=== PATIENT | male | born 1955 | race Caucasian/White ===

== ENCOUNTER 2022-08-12 03:32 | Outpatient (CLI) | payer BC, SELFPAY ==
[2022-08-12 11:54] LABS: Anion Gap 7.2 mmol/L (3-11); BUN 22 mg/dL (7-18); CO2 27.8 mmol/L (21.0-32.0); CREATININE 1.3 mg/dL (0.70-1.30); Calcium 9.3 mg/dL (8.5-10.1); Calculated LDL 167 mg/dL (<100); Chloride 104 mmol/L (98-107); Cholesterol 236 mg/dL (<200); Estimated GFR 60.21 (mL/min/1.73m2); Glucose 106 mg/dL (74-106); HDL Cholesterol 48 mg/dL (40-60); Potassium 4.9 mmol/L (3.5-5.1); Sodium 139 mmol/L (136-145); Triglyceride 105 mg/dL (<150)
[2022-08-12 12:04] LABS: Uric Acid 9.5 mg/dL (3.5-7.2)
== END 2022-08-12 03:33 | disposition home or self-care (01) ==
LOC: LOS 03:46
PROVIDERS: PCP General Practice; Visit Provider Nurse Practitioner Family
DX: R03.0 Elevated blood-pressure reading, without diagnosis of hypertension (principal); Z00.00 Encounter for general adult medical examination without abnormal findings; Z86.39 Personal history of other endocrine, nutritional and metabolic disease; Z80.42 Family history of malignant neoplasm of prostate
CPT/HCPCS: 36415; 80048; 80061; 84153; 84550

== ENCOUNTER 2022-10-08 17:53 | Outpatient (REF) | payer BC, SELFPAY ==
[2022-10-08 20:54] LABS: ALT 66 U/L (16-63); AST 36 U/L (15-37); Creatine Kinase 168 U/L (39-308); Uric Acid 5.8 mg/dL (3.5-7.2)
[2022-10-08 21:22] LABS: HDL Cholesterol 52 mg/dL (40-60); LDL CHOLESTEROL 84 mg/dL (<100)
== END 2022-10-08 17:54 | disposition home or self-care (01) ==
LOC: NCHCN 17:53
PROVIDERS: PCP General Practice; Visit Provider Nurse Practitioner Family
DX: E78.70 Disorder of bile acid and cholesterol metabolism, unspecified (principal); R03.0 Elevated blood-pressure reading, without diagnosis of hypertension; Z86.39 Personal history of other endocrine, nutritional and metabolic disease
CPT/HCPCS: 82550; 83721; 83718; 84450; 84460; 84550

== ENCOUNTER 2023-03-06 11:46 | Outpatient (CLI) | payer BC, SELFPAY ==
--- NOTE | 2023-03-06 11:30 | DI.RAD_ITS ---
Exam(s) XR SHOULDER RT COMPLETE 2+V EXAM: XR SHOULDER RT COMPLETE 2+V CLINICAL HISTORY: right shoulder pain. TECHNIQUE: 2D digital imaging was performed. Five views. COMPARISON: CR RIGHT SHOULDER COMPLETE from 03/23/2013 FINDINGS: BONES: No acute fracture is present. No bony destructive lesion is seen. JOINTS: No dislocation present. There are severe degenerative changes of the glenohumeral joint with prominent inferior osteophyte. There is narrowing of the inferior glenohumeral joint space. Spurri ng is seen from the inferior glenoid. The AC joint is unremarkable. SOFT TISSUE: Normal. IMPRESSION: Severe degenerative changes of the glenohumeral joint. DATA REPOSITORY: RADIATION DOSE DELIVERED:
== END 2023-03-06 11:47 | disposition home or self-care (01) ==
LOC: DIORS 11:47
PROVIDERS: PCP Nurse Practitioner Family; Referring Provider Nurse Practitioner Family; Visit Provider Physician Assistant
DX: M19.011 Primary osteoarthritis, right shoulder
CPT/HCPCS: 73030

== ENCOUNTER 2023-11-17 05:57 | Day surgery (SDC) | payer BC, SELFPAY ==
[2023-11-17] VITALS (10 sets, daily range): BP systolic 120–176; BP diastolic 72–102; PULSE 65–94; RESP 14–21; TEMP 36.5–37.1; O2SAT 93–100; BMI 32.4
--- NOTE | 2023-11-17 06:33 | ANES.PREOP_ITS ---
General Info Date of Service Date Performed: 11/17/23 Height: 5 ft 6 in Weight: 91.2 kg Body Mass Index (BMI): 32.4 Surgical Procedure: Operation Date: 11/17/23 07:40 Proposed Procedure Side Surgeon p Shoulder Reverse Total Arthroplasty, Biceps Tenodesis Right Serafin Aguilar MD Meds Allergies and Home Medications Allergies Allergy/AdvReac Type Severity Reaction Status Date / Time No Known Allergies Allergy Verified 11/17/23 06:09 Home Medication Medication Instructions Recorded atorvastatin 20 mg tablet 20 mg PO DAILY Cholesterol 03/06/23 famciclovir 500 mg tablet 1,000 mg PO ONCE PRN Treatment of 03/06/23 coldsores allopurinol 100 mg tablet 200 mg PO DAILY Gout preventative 09/22/23 aspirin 81 mg tablet,delayed 81 mg PO DAILY prevent blood clot 11/17/23 release 7 days #7 tabs naproxen 250 mg tablet 250 - 500 mg (1 - 2 x 250 mg) PO 11/17/23 BID PRN #40 tabs oxycodone 5 mg tablet 5 - 10 mg (1 - 2 x 5 mg) PO Q4H 11/17/23 PRN moderate to severe pain #9 tabs Current Visit Medications: Current Medications Generic Name Dose Route Start Last Admin Trade Name Freq PRN Reason Stop Dose Admin Ringer's Solution 1,000 mls @ 30 mls/hr 11/17/23 06:00 IV 12/16/23 23:59 INFUSION [facility] Cefazolin Sodium/Dextrose 2 gm in 50 mls @ 100 mls/hr 11/17/23 06:00 Ancef Duplex IVPB 11/17/23 16:00 PREOP KITTY Tranexamic Acid 1,000 mg/ 60 mls @ 360 mls/hr 11/17/23 06:00 Sodium Chloride IVPB 11/17/23 16:00 PREOP KITTY IV Miscellaneous Supplies 1 each 11/17/23 06:00 Iv Access IV 12/16/23 23:59 DIRECTED KITTY Sodium Chloride 0 ml 11/17/23 06:00 Normal Saline Flush 10 Ml Syr IV 12/16/23 23:59 PRN PRN Sodium Chloride 0 ml 11/17/23 06:00 Normal Saline 10 Ml Vial IJ 12/16/23 23:59 DIRECTED PRN Sterile Water 0 ml 11/17/23 06:00 Water,Injection,Sterile 10 Ml Vial IJ 12/16/23 23:59 DIRECTED PRN PFS Active Problems Active Problems: Problem Status Onset Code Arthritis of right glenohumeral joint M19.011 Medical History Medical History Hx of cold sores High cholesterol Hx of gout Surgical History Surgical History Hx of colonoscopy Hx of appendectomy Tobacco Smoking/Tobacco Use Status: Former Tobacco Use Alcohol Alcohol Intake: current Alcohol intake frequency: a few times a week Alcohol type: hard liquor Substance Use Substance use: Never Substance use type: does not use Details: alcohol: t-7 Vital Signs and Lab Results Vital Signs Most Recent Vital Signs in EMR: Most Recent Vital Signs Temp Pulse Resp BP Pulse Ox 36.6 C 70 14 176/98 H 97 11/17/23 06:16 11/17/23 06:16 11/17/23 06:16 11/17/23 06:16 11/17/23 06:16 Lab Results Blood Type / Crossmatch: No Data to Display Complete Blood Count: No Data to Display Complete Metabolic Panel: No Data to Display Liver Function Panel: No Data to Display Coagulation Panel: No Data to Display Cardiac Panel: No Data to Display Arterial Blood Gas: No Data to Display Venous Blood Gas: No Data to Display Pancreas Panel: No Data to Display Thyroid Panel: No Data to Display Infectious Disease: No Data to Display Blood Cultures: No Data to Display Toxicology Panel: No Data to Display Anesthesia Assessment and Plan Anesthesia History Personal History: No History of Anesthesia Complications Family History: No Family History of Anesthesia Complications Exercise Tolerance Exercise Tolerance: Metabolic Equivalents>4 Pertinent Negatives Pertinent Negatives: No Symptoms of GERD, No Major Cardiovascular Symptoms or Complaints, No Major Pulmonary Symptoms or Complaints and No History of CVA/TIA Cardiac & Pulmonary Exam Cardiac Exam: Normal S1/S2 Heart Sounds Pulmonary Exam: Clear Bilateral Breath Sounds Implantable Cardiac Device Does patient have a Pacemaker or an ICD?: No Airway Exam Known Difficult Airway: No Mallampati Class: 2 Mouth Opening: Normal (> 3cm) Thyromental Distance: Greater than 3 cm Neck Range of Motion: Full ROM Neck Circumference: Normal Teeth Condition: Normal Dentition ASA Classification ASA Score: ASA 2 Emergency Case?: No NPO Status NPO Status: NPO Clears >2 hours, Solids >8 hours Anesthesia Plan Resuscitation Status: Full Code Anesthesia Technique: General Anesthesia Airway Planned: Endotracheal Tube Pain Management: Surgeon and patient request nerve block Monitors Used: Standard Monitors and SedLine
[2023-11-17] MEDS: Lactated Ringers 1,000 ML 30 ML IV (06:45)
--- NOTE | 2023-11-17 07:06 | W.PM.DSUDISC ---
Date of service: 11/17/23 Time of Service: 12:00 Discharge Plan Disposition Patient Disposition: Home Condition: Stable Discharge Details Attending Provider: Serafin Aguilar Primary Care Provider: Addis Ly Home Meds and New Rx's Prescriptions: New aspirin 81 mg tablet,delayed release (DR/EC) 81 mg PO DAILY 7 Days Qty: 7 0RF naproxen 250 mg tablet 250 - 500 mg PO BID PRNQty: 40 0RF Rx Instructions: take with a meal oxycodone 5 mg tablet 5 - 10 mg PO Q4H MDD 30 mg PRN (Reason: moderate to severe pain) Qty: 9 0RF Continued atorvastatin 20 mg tablet 20 mg PO DAILY famciclovir 500 mg tablet 1,000 mg PO ONCE PRN (Reason: Treatment of coldsores) Patient Comments: Taken only as needed. allopurinol 100 mg tablet 200 mg PO DAILY Discontinued naproxen sodium [Aleve] 220 mg capsule 220 mg PO DAILY PRN Discharge Instructions Additional Instructions: Surgery: Right reverse total shoulder arthroplasty with biceps tenodesis Activity: Do not lift anything heavier than a coffee. You should keep your arm at your side in a neutral position most of the time except for gentle range of motion exercises, physical therapy, and light essential activities. You should use the sling whenever you are out of the house. You may have to adjust the abduction pillow or remove it for comfort. At home it is best to remove the sling and rest the arm on a pillow at your side or support the operative side with your other hand. A physical therapy prescription will be sent electronically to start in about 3 weeks. Standard Reverse TSA Protocol: Immediate AROM OK. Prescriptions: Aspirin 81 mg take 1 daily to prevent a blood clot for 2 weeks Naproxen 250 mg take 1-2 every 12 hours with a meal as needed for moderate pain Oxycodone 5 mg take 1-2 every 4-6 hours as needed for severe pain You may use [id number] Tylenol (acetaminophen) as needed for mild pain. These pain medications may be taken all at once or in different combinations as needed. Also, recommend Colace (docusate) as a stool softener as surgery and pain medicine cause constipation. You may try [id number] diphenhydramine (Benadryl) 25-50 mg nightly as a sleep aid Dressings: Leave dressing in place until follow-up. Keep clean and dry at all times. No showers please. Follow-up: 10-[address] Aguilar You may take off the leg compression stockings this evening at home. You may also leave them on a few days longer if you have a history of leg swelling or edema. Please call the office during business hours with any questions or concerns. Let us know right away if you develop any redness, drainage, fevers, chest pain, or trouble breathing. Do not drink alcohol or drive for at least 24 hours after anesthesia. Discharge Orders Discharge Orders: Discharge Order (Routine); Ordered 11/17/23 Ordered By: Serafin Aguilar DS: Diagnosis Discharge Diagnosis (1) Arthritis of right glenohumeral joint: Status: Chronic
--- NOTE | 2023-11-17 07:08 | ROE_ITS ---
Date of service: 11/17/23 Time of Service: 07:38 Operative Note Operative Note DATE OF PROCEDURE: 11/17/23 PRE-OP DIAGNOSIS: Right: 1. End-stage glenohumeral arthritis 2. Long head of the biceps tendinopathy POST-OP DIAGNOSIS: same PROCEDURE: Right: 1. Reverse total shoulder arthroplasty, CPT # [address] 2. Open biceps tenodesis, CPT # 07433 The surveyor instrument assistant was medically required as this procedure involves retraction, protection of neurovascular structures, and manipulation of multiple instruments and implants at the same time, which cannot be done without a skilled surveyor instrument assistant. SURGEON: Serafin Aguilar HELP DESK INTERN: Maddy Winchester ANESTHESIA TYPE: Local By Surgeon, General LMA/ETT and Primary Nerve Block Refer to Anesthesia Record ESTIMATED BLOOD LOSS: 50 COMPLICATIONS: None Patient was transported to: PACU Patient's condition: stable Implants: [employer] modular glenoid system baseplate 24 mm with 20 degree full augment [employer] modular glenoid system central post 25 mm [employer] modular glenoid system peripheral locking screws 28 mm posterior inferior, 36 mm anterior superior, 32 mm posterior superior, 28 mm anterior inferior [employer] modular glenoid system glenosphere 42 +4 mm lateralized [employer] humeral stem 135 degrees size 8 [employer] suture cup size 42 posterior offset [employer] humeral insert size 42 +63 mm Indications: Please see complete medical record for details. Findings: Significant glenohumeral bony deformity with large impinging osteophytes, loose bodies, complete cartilage loss, anterior capsular and subscapularis contracture, thinning supraspinatus, significant long head biceps tenosynovitis with about apparent chronic partial tearing and retraction into the bicipital groove with loose bodies as well. Procedure Description: In the operating room, general anesthesia was induced. The patient was positioned beachchair on the operating room table. All bony prominences were well-padded. Preoperative antibiotics were administered. The shoulder was prepped and draped in the usual sterile fashion for shoulder arthroplasty. The correct patient, procedure, and side of the procedure were all verified prior to incision. The deltopectoral approach was preinjected with 0.25% bupivacaine containing epinephrine 30cc and taken to the anterior shoulder. Care was taken to bluntly dissect the interval between the deltoid and pectoralis major muscles and to identify the cephalic vein within its fat stripe. The the vein was mobilized laterally. Subdeltoid space and conjoined tendon were freed of adhesions. The long head of the biceps tendon was identified just lateral to the lesser tuberosity. The uppermost margin of the pectoralis major tendon was released from the proximal humerus. There was an obvious stump of the rolled up retracted biceps tendon in the bicipital groove. It was tagged with suture tape. The bicipital groove was opened more proximally and followed into the joint. The remainder of the proximal long head biceps tendon was identified intact and diminutive possibly the other 50% of the tendon not torn and retracted. It was released and also tagged at about the same level bicipital groove lesser tuberosity with suture tape for later repair. The upper margin of the pectoralis major tendon was released. A subscapularis peel was started releasing the entirety of the tendon as best possible, but given the significant impinging anterior osteophytes in the anterior capsular contracture, it became clear it was unlikely to be amenable to later repair. Still it was tagged with suture tape in a Alo-Yasir fashion for help with release and retraction. Significant care was taken working from anterior to anterior inferior along the osteophytes while gradually bringing the arm into external rotation. Care was taken to avoid the axillary nerve especially inferiorly and medially. Releases were performed on bone of the humerus sequentially releasing capsule and then removing the osteophytes to view the anatomic neck. The anterior leading edge of the supraspinatus was debrided of partial-thickness tearing. Appropriate coagulation was achieved especially interiorly. The anatomic neck was cut matching patient retroversion about 30 degrees in the planned 135 degree neck shaft angle using an oscillating saw with the humeral head bone brought back table in case there was a need for future bone grafting. The proximal humeral protection plate was used to provisionally confirm suture cup and glenosphere size. The proximal humerus was delivered and maintained in external rotation and adduction of the patient's side. Reamers were started appropriately posterior to the bicipital groove taking care to maintain in line approach with the humeral canal. Sequential reaming was done from size 5 up to size 8. Next, the broaches were sequentially used to open the proximal humerus starting with a size 5 and going up to size 8 and sunk to the appropriate depth while maintaining approximately 30 degrees retroversion. There was good metaphyseal fit and rotational control of the proximal humerus with this size. The posterior offset guide was used to ream for the suture cup. Attention was then turned to the glenoid and retractors were placed and a circumferential release performed using the long head of the biceps remnant to remove soft tissue about the glenoid rim. Care was taken inferiorly to work on bone only between 5 and 7:00 o'clock and bluntly elevate tissues inferiorly. The VIP guide was placed on the glenoid and used to confirm placement and trajectory of the central guidepin. The guidepin was inserted and advanced just through the far cortex ensuring adequate central fixation length. Depth gauge was used to confirm length. The 20 degree eccentric baseplate die drawing checker was used, maximum defect and 180 degrees from this point marked on the glenoid surface, and the eccentric reamer used over the guidewire taking significant care to maintain the appropriate angles and prepare the significantly retroverted and worn glenoid as best possible. Reamed surface was checked, the reamer done to establish just barely the right amount of depth. Reamed surface was checked and appropriate. There was excellent reaming as templated slightly more anteriorly than posteriorly with appropriate glenoid face preparation with correction mostly from posterior to anterior. The 25 mm central post drill was used. Guidewire removed and appropriate glenoid face and socket preparation confirmed. The baseplate was impacted and fully compressed onto the glenoid surface matching the augment to the defect. The locking guide was then used to drill and place appropriately lengthed inferior, superior, anterior, and posterior screws. The [id number] reamer was used to confirm adequate peripheral reaming. The glenosphere was applied with the airfield defence guard and then impacted to engage the Alfaro taper. It was then locked with appropriate countersinking of the setscrew. The glenosphere was inspected and found to have good fit, appropriate positioning, and no soft tissue or bony impingement. The humeral trial cup was connected. Trialing was commenced with +3 mm liner. The shoulder was reduced and taken through range of motion and demonstrated good stability and appropriate tension on the deltoid and conjoined tension. The trial components were removed from the proximal humerus. The wound was copiously irrigated with normal saline. Subscapularis repair was omitted given lack of excursion to the lateralized lesser tuberosity. It was tenotomized just medial to the tag sutures. A small amount of vancomycin powder was distributed in the proximal humerus. The humeral component and suture cup were impacted into place. They rested in the same place as the last trialed implants so the final liner was then connected, and range of motion, stability, and tension confirmed. The shoulder was copiously irrigated with Irrisept and normal saline. Vancomycin powder was distributed deeply about the shoulder and through subcutaneous tissues. The 2 ends of the intact and ruptured biceps tendon were brought to the bicipital groove at about the lesser tuberosity to establish correct tension. The upper margin of the pectoralis major tendon on the humerus bone and biceps tendon at this level were secured together using suture tape [id number], which was repaired distal to the partial split tearing. The remainder rested nicely proximally adjacent to the lesser tuberosity and was adhered to this bone with the needle passed through the lesser tuberosity bone and then tied over the tendon. The remainder of the proximal tendon was amputated. The cephalic vein and deltopectoral interval was approximated using 2-0 Monocryl. Subcutaneous tissue was irrigated then closed using 2-0 Monocryl in a buried interrupted fashion. Skin was closed using 3-0 Monocryl in a buried subcuticular fashion. Skin glue was applied to the incision. A silver impregnated bandage was placed over the incision. The extremity was placed into a shoulder immobilizer. The patient awoke from anesthesia without complication and was taken to the recovery room in stable condition.
[2023-11-17] MEDS: ceFAZolin 2 GM/50 ML BAG IVPB (07:59)
[2023-11-17] MEDS: Bupivacaine 0.25% Pres-Free 30 ML VIAL (08:30)
[2023-11-17] MEDS: EPINEPHrine 10 MG/10 ML ML (08:30)
--- NOTE | 2023-11-17 09:03 | W.ANESNERVE ---
Nerve Block Single Injection Procedure Date and Time Date Performed: 11/17/23 Procedure Start: 07:13 Location Where Procedure Performed Procedure Location: Day Surgery Unit Reason Performed: Postoperative Analgesia Requesting Provider: Serafin Aguilar Timeout Performed Timeout Performed: Yes Monitoring Used ECG, Blood Pressure and SpO2 Sterility Sterility: Hand Hygiene, Surgical Cap, Surgical Mask, Sterile Gloves and Chlorhexidine Sedation Given During Procedure Sedation Given (Indicate Dose Given): Versed IV Dose:: 2mg Patient Mental Status Patient Mental Status: Sedate with meaningful communication Nerve Block 1st Nerve Block: Laterality: Right Block Type: Superficial Cervical Plexus Ultrasound Image Saved?: Yes Needle / Catheter Used: 100mm SonoPlex II Local Anesthetic Bolus (Indicate Dose Given): Lidocaine used for local infiltration of skin, Injected in 3-5ml increments after negative blood aspiration, Bupivacaine 0.5% Dose:: 3.5mL and Exparel Dose:: 3.5mL Additives (Indicate Dose Given): None Ultrasound: Sterile probe cover and gel used Nerve Stimulator: Supplement to Ultrasound use and No twitch or parasthesia noted < 0.5 mA Paresthesia: None Procedure Tolerated: No Complications and Patient tolerated well Procedure Outcome: Successful Performed By: Antonio Echeverria 2nd Nerve Block: Laterality: Right Block Type: Interscalene Ultrasound Image Saved?: Yes Needle / Catheter Used: 100mm SonoPlex II Local Anesthetic Bolus (Indicate Dose Given): Lidocaine used for local infiltration of skin, Injected in 3-5ml increments after negative blood aspiration, Bupivacaine 0.5% Dose:: 6.5mL and Exparel Dose:: 6.5mL Additives (Indicate Dose Given): None Ultrasound: Sterile probe cover and gel used Nerve Stimulator: Supplement to Ultrasound use Paresthesia: None Procedure Tolerated: No Complications and Patient tolerated well Procedure Outcome: Successful Performed By: Antonio Echeverria
--- NOTE | 2023-11-17 11:00 | DI.RAD_ITS ---
Exam(s) XR SHOULDER RT COMPLETE 2+V EXAM: XR SHOULDER RT COMPLETE 2+V CLINICAL HISTORY: Shoulder arthritis. TECHNIQUE: 2D digital imaging was performed of the right shoulder. Two images were obtained. Grash ey and Y views were obtained. COMPARISON: CR XR SHOULDER RT COMPLETE 2+V from 03/06/[address] UPPER EXTREMITY RT WO from 08/07/2023 FINDINGS: The patient is now status post right total reverse shoulder replacement. Orthopedic hardware is in g ood position. The bones are intact and normally mineralized. Postsurgical changes are seen in the s oft tissues. There are old healed right rib fractures. The visualized lungs are clear. IMPRESSION: Status post right total reverse shoulder replacement. DATA REPOSITORY: RADIATION DOSE DELIVERED:
[2023-11-17] MEDS: ceFAZolin 1 GM/50 ML BAG IVPB (11:31)
--- NOTE | 2023-11-17 12:32 | W.ANESPOSTOP ---
Postoperative Evaluation Date, Time and Location Date Performed: 11/17/23 Time Performed: 12:32 Patient Location: PACU Vital Signs Most Recent Imported Vital Signs: Most Recent Vital Signs Temp Pulse Resp BP Pulse Ox 36.7 C 66 21 138/78 96 11/17/23 12:14 11/17/23 12:14 11/17/23 12:14 11/17/23 12:14 11/17/23 12:14 Pain Score Most Recent Pain Score: Most Recent Pain Score Pain Level 0 11/17/23 12:14 Assessment Mental Status: Awake (Alert & Oriented to Patient Baseline) Airway and Respiratory Function: Patent airway with normal (patient baseline) respiratory exam Cardiovascular Function: Hemodynamically Stable Hydration Status: Adequately Hydrated Nausea & Vomiting: No Nausea or Vomiting Pain: Pt. Denies Any Pain Peripheral Nerve Block: Regional nerve block not resolved at time of post operative discharge
== END 2023-11-17 14:37 | disposition home or self-care (01) ==
PROVIDERS: PCP Nurse Practitioner Family; Visit Provider Student in an Organized Health Care Education/Training Program
PROC: (CPT 23472; principal; 2023-11-17 07:30)
DX: M19.011 Primary osteoarthritis, right shoulder (principal); M75.21 Bicipital tendinitis, right shoulder
CPT/HCPCS: 23472; 76942; 73030; C9290; J0131; J0665; J0690; J1100; J1885; J2001; J2250; J2371; J2405; J2704; J3370

== ENCOUNTER 2023-12-01 11:36 | Outpatient (CLI) | payer BC, SELFPAY ==
--- NOTE | 2023-12-01 09:45 | DI.RAD_ITS ---
Exam(s) XR SHOULDER RT COMPLETE 2+V EXAM: XR SHOULDER RT COMPLETE 2+V INDICATION: F/U RIGHT RTSA. COMPARISON: CR XR SHOULDER RT COMPLETE 2+V from 11/17/2023 TECHNIQUE: 2D digital imaging was performed. Two views. FINDINGS: There has been no change in the alignment of the shoulder prosthesis. There are no abnormal bony lucencies. DATA REPOSITORY: RADIATION DOSE DELIVERED:
== END 2023-12-01 11:37 | disposition home or self-care (01) ==
LOC: DIORS 11:36
PROVIDERS: PCP Nurse Practitioner Family; Visit Provider Student in an Organized Health Care Education/Training Program
DX: M19.011 Primary osteoarthritis, right shoulder (principal)
CPT/HCPCS: 73030

== ENCOUNTER 2024-01-12 15:57 | Outpatient (CLI) | payer BC, SELFPAY ==
--- NOTE | 2024-01-12 08:00 | DI.RAD_ITS ---
Exam(s) XR SHOULDER RT COMPLETE 2+V EXAM: XR SHOULDER RT COMPLETE 2+V INDICATION: F/U RIGHT RTSA. COMPARISON: CR XR SHOULDER RT COMPLETE 2+V from 12/01/2023 TECHNIQUE: 2D digital imaging was performed. Three views. FINDINGS: Stable appearance of reverse shoulder prosthesis. No abnormal bony lucencies. DATA REPOSITORY: RADIATION DOSE DELIVERED:
== END 2024-01-12 15:58 | disposition home or self-care (01) ==
LOC: DIORS 15:57
PROVIDERS: PCP Nurse Practitioner Family; Visit Provider Student in an Organized Health Care Education/Training Program
DX: M19.011 Primary osteoarthritis, right shoulder (principal)
CPT/HCPCS: 73030

== ENCOUNTER 2024-11-18 15:59 | Outpatient (REF) | payer BC, SELFPAY ==
[2024-11-18 19:03] LABS: ALT 24 U/L (16-63); AST 31 U/L (15-37); Albumin 4.2 g/dL (3.4-5.0); Alkaline Phosphatase 86 U/L (46-116); Anion Gap 4.8 mmol/L (3-11); BUN 21 mg/dL (7-18); Bilirubin, Total 0.67 mg/dL (0.2-1.0); CO2 28.2 mmol/L (21.0-32.0); CREATININE 1.2 mg/dL (0.70-1.30); Calcium 8.9 mg/dL (8.5-10.1); Calculated LDL 71 mg/dL (<100); Chloride 103 mmol/L (98-107); Cholesterol 145 mg/dL (<200); Estimated GFR 65.06 (mL/min/1.73m2); Glucose 95 mg/dL (74-106); HDL Cholesterol 59 mg/dL (40-60); Potassium 4.1 mmol/L (3.5-5.1); Sodium 136 mmol/L (136-145); Total Protein 8.2 g/dL (6.4-8.2); Triglyceride 75 mg/dL (<150)
[2024-11-18 19:14] LABS: Uric Acid 3.8 mg/dL (3.5-7.2)
[2024-11-18 19:33] LABS: Hemoglobin A1C 6.1 % (<5.7)
[2024-11-21 10:25] LABS: PSA, Screening 1.9 ng/mL (<=6.5)
== END 2024-11-18 16:00 | disposition home or self-care (01) ==
LOC: NCHCN 15:59
PROVIDERS: Visit Provider Nurse Practitioner Family
DX: Z00.00 Encounter for general adult medical examination without abnormal findings (principal)
CPT/HCPCS: 80053; 80061; 84153; 83036; 84550

== ENCOUNTER 2024-11-22 15:31 | Outpatient (CLI) | payer BC, SELFPAY ==
--- NOTE | 2024-11-22 08:00 | DI.RAD_ITS ---
Exam(s) XR SHOULDER RT COMPLETE 2+V EXAM: XR SHOULDER RT COMPLETE 2+V CLINICAL HISTORY: F/U RIGHT RTSA. TECHNIQUE: 2D digital imaging was performed. Five images were obtained. Grashey, Y and axillary vie ws were obtained. COMPARISON: CR XR SHOULDER RT COMPLETE 2+V from 01/12/2024 FINDINGS: BONES: There are stable post operative changes of a right reverse total shoulder arthroplasty present . No fracture or dislocation. There are old healed right rib fractures. JOINTS: The orthopedic hardware is in good position. No evidence of hardware loosening. Mild degene rative changes are seen at the acromioclavicular joint. SOFT TISSUE: Normal. IMPRESSION: Stable right reverse total shoulder arthroplasty. DATA REPOSITORY: RADIATION DOSE DELIVERED:
== END 2024-11-22 15:32 | disposition home or self-care (01) ==
LOC: DIORS 15:31
PROVIDERS: PCP Nurse Practitioner Family; Visit Provider Student in an Organized Health Care Education/Training Program
DX: M19.011 Primary osteoarthritis, right shoulder (principal)
CPT/HCPCS: 73030

== ENCOUNTER 2025-09-26 10:45 | Day surgery (SDC) | payer OTHER, SELFPAY ==
[2025-09-26 10:59] VITALS: BP 169/94; PULSE 77; RESP 16; TEMP 36.2; O2SAT 98
[2025-09-26] MEDS: Cephalexin 500 MG CAP 1000 MG PO (11:05)
--- NOTE | 2025-09-26 12:10 | W.PM.DSUDISC ---
Date of service: 09/26/25 Discharge Plan Disposition Patient Disposition: Home Condition: Good Discharge Details Reason For Visit: L ECTR, LFM Trigger Release Attending Provider: Nolberto Grier Primary Care Provider: Laurel Bazan Home Meds and New Rx's Prescriptions: New acetaminophen 500 mg tablet 1,000 mg PO TID Qty: 90 0RF ibuprofen 600 mg tablet 600 mg PO TID PRN (Reason: pain) Qty: 90 0RF Continued atorvastatin 20 mg tablet 20 mg PO DAILY allopurinol 100 mg tablet 200 mg PO DAILY Discharge Instructions Stand Alone Forms: [place] C. Tunnel Release, [place] T. Finger Release, Portal Information Referrals: Nolberto Grier MD [ [facility] STAFF PHYSICIAN, Orthopaedic Surgical] Activity:: Activity as Tolerated Remove Dressings/Wound Care:: 48 hours Shower/Bathe:: 48 hours Diet:: As Tolerated Discharge Orders Discharge Orders: Discharge Order (Routine); Ordered 09/26/25 Ordered By: Star Segovia DS: Diagnosis Discharge Diagnosis (1) Trigger finger, left middle finger: Status: Acute (2) Carpal tunnel syndrome, left: Status: Acute
[2025-09-26] MEDS: Lidocaine 1% Pres-Free W/EPI 1/200,000 10 ML VIAL (13:15)
[2025-09-26] MEDS: Sodium Bicarbonate 50 MEQ/50 ML VIAL (13:16)
[2025-09-26 13:21] VITALS: BP 142/80; PULSE 69; RESP 16; TEMP 36.2; O2SAT 94
--- NOTE | 2025-09-26 15:01 | W.PM.OP ---
Operative Note Operative Note PRE-OP DIAGNOSIS: Left Carpal Tunnel Syndrome Left middle finger trigger finger POST-OP DIAGNOSIS: same PROCEDURE: Left Endoscopic Carpal Tunnel Release Left middle finger trigger release SURGEON: Nolberto Grier ANESTHESIA TYPE: Local By Surgeon Refer to Anesthesia Record ESTIMATED BLOOD LOSS: 0 PATHOLOGY: none sent TOURNIQUET TIME: 6 COMPLICATIONS: None Patient was transported to: same day Patient's condition: stable Indications: I have seen Kitr in clinic for symptoms of carpal tunnel syndrome. The numbness, tingling, and pain limited function. Clinical exam findings confirmed the diagnosis of carpal tunnel syndrome. He also had clicking and triggering of the left middle finger which has been ongoing for quite some time. Nonoperative measures such as bracing, time, activity modifications had been tried but disability and pain persisted. I discussed carpal tunnel release with the patient. I also offered concomitant left finger trigger release. I reviewed the risks of the procedures to include, but not limited to, bleeding, infection, pain, stiffness, incomplete release, damage to nerves or vessels, persistent numbness, recurrence. Despite these risks, the patient elected to proceed. Findings: The left middle finger A1 medina was release without difficulty. There was tightened carpal tunnel. This was dilated and released successfully with the endoscopic with increased space within the tunnel. The antebrachial fascia was released proximally freeing the median nerve at the wrist. Procedure Description: Kirt was greeted in the preoperative holding area where the correct side was identified and marked. The consent was reviewed with the patient and signed. The history and physical was updated. All questions were answered. Kirt was taken back to the operating room. The patient was placed into the supine position on the operating room table with the left arm on an arm board. A nonsterile tourniquet was placed high onto the arm. All bony prominences were well padded. Prophylactic antibiotics in the form of Cephalexin were administered in DSU. The left arm was then prepped with Chloraprep and draped in a standard fashion with stockinette and extremity drape. A timeout to confirm correct identity, side and site, procedure, allergies, anesthesia, and medical concerns was performed. The surgical site was marked in the volar wrist creases in line with the radial border of the fourth ray as well as longitudinally overlying the A1 medina of the left middle finger.. This area was anesthetized with approximately 10cc of 1% Lidocaine with Epinephrine, buffered with Sodium Bicarbonate and extended into the carpal tunnel. The area around the A1 medina of the left middle finger was also anesthetized. Kirt tolerated this well and once the anesthetic had setup, the procedure began. A longitudinal incision was made through skin only, approximately 1cm, overlying the A1 medina. The deep tissues were dissected bluntly. Once the A1 medina and flexor tendons were identified the soft tissue including neurovascular structures were retracted medially and laterally. There were no crossing structures over the A1 medina. The proximal edge of the medina was identified and the medina was incised with tenotomy scissors. There was a release of the tendons once this was fully released. The tendons were then removed from the wound and inspected. Excess synovium was resected. The tendons were then returned and the patient was asked to move the finger into deep flexion and back to extension. There was no recreation of the pre-operative symptoms. The hand was then once more inspected for any A0 medina or area of possible constriction. The wound was then irrigated and the skin was closed with a 4-0 Nylon. Then, the limb was then exsanguinated with an Esmarch. The skin of the volar wrist was incised with a 15 blade, approximately 1cm. The skin only was cut and the deeper tissue was dissected bluntly with a tenotomy scissor, avoiding passing nerve and venous structures. The fascia was penetrated and opened bluntly. A two-prong skin hook was placed under this proximal fascial edge. A series of hamate finders were used to identify and dilate the carpal tunnel. Synovial elevator was used to free synovial attachments to the underside of the transverse carpal ligament. My thumb was kept in the palm to jhon the distal extent of the carpal tunnel and correctly position the hand. The Microaire endoscope was inserted without difficulty and without resistance. Excellent visualization showed horizontally running fibers of the transverse carpal ligament (TCL). The distal extent of the TCL was visualized and the end of the scope palpated with the thumb. The blade was elevated and withdrawn from distal to proximal. The TCL was split into two flaps. The endoscope was reinserted to confirm complete release and any remnant ligament was incised. The scope was withdrawn and the proximal aspect of the carpal tunnel was grossly inspected and appeared release with the median nerve visible. The antebrachial fascia at the level of the wrist was then freed from the overlying skin and then the underlying median nerve with blunt dissection. This was transected longitudinally for about 3cm proximal to the wrist incision. The wound was then irrigated with easy flow of irrigant distally and proximally. The incision was closed with a single 4-0 Nylon suture. The wounds were dressed with Xeroform, Gauze, Kerlix and Rodolfo. The tourniquet was deflated with the initial dressing and held with some pressure. Blood flow returned easily to all digits with capillary refill less than 2 seconds. The patient tolerated the procedure well and was returned to the Same Day Surgery area in a stable condition suffering no known complication. Date of Procedure: 09/26/25
== END 2025-09-26 13:32 | disposition home or self-care (01) ==
PROVIDERS: PCP Nurse Practitioner Family; Visit Provider Student in an Organized Health Care Education/Training Program
PROC: 01N54ZZ Release Median Nerve, Percutaneous Endoscopic Approach (ICD-10-PCS; CPT 29848; principal; 2025-09-26 13:00)
PROC: (CPT 26055; 2025-09-26 13:00)
DX: G56.02 Carpal tunnel syndrome, left upper limb (principal); M65.332 Trigger finger, left middle finger
CPT/HCPCS: 29848; 26055; J2004